=== PATIENT | female | born 1990 | race Hispanic/Latino ===

== ENCOUNTER 2019-06-30 19:15 | Inpatient (IN) | payer OTHER ==
[~2019-06-30 19:15] MED LIST: Bupivacaine 0.25% HCL 30 ML VIAL ONE
[2019-06-30] MEDS ORDERED: NS w/ Oxytocin 10 units 500 ML IV SCH (19:54)
[2019-06-30] MEDS ORDERED: Promethazine HCl 25 MG/ML VIAL IM PRN (19:54)
[2019-06-30] MEDS ORDERED: Ibuprofen 800 MG TAB PO PRN (19:54)
[2019-06-30] MEDS ORDERED: HYDROcodone/Acetaminophen 5/325 mg Tablet PO PRN ×2 (19:54)
[2019-06-30] MEDS ORDERED: Lidocaine 1% (PF) 30 ML VIAL SC PRN (19:54)
[2019-06-30] MEDS ORDERED: hydrALAZINE 20 MG/ML VIAL SLOW IVP PRN (19:54)
[2019-06-30 20:19] VITALS: BMI 33.0
[2019-06-30] MEDS: Lactated Ringer's 1,000 ML IV SCH (20:41)
[2019-06-30 21:05] LABS: Hemoglobin 12.9 g/dL (12.0-16.0); Mean Corpuscular HGB CONC 35.7 g/dL (32.0-36.0); Mean Corpuscular Hemoglobin 32.4 pg (27.0-31.0); Mean Corpuscular Volume 90.7 fL (78.0-98.0); Mean Platelet Volume 9.9 fL (7.4-10.4); Platelet Count 151 thou/uL (130-400); RBC Distribution Width 11.9 % (11.5-14.5); Red Blood Cell (RBC) Count 3.97 mill/uL (4.20-5.40); White Blood Cell (WBC) Count 10.3 thou/uL (4.8-10.8)
[2019-06-30] MEDS: Misoprostol 100 MCG TAB VAG SCH (21:12)
[2019-06-30 21:43] LABS: Syphilis Antibody Nonreactive (Nonreactive); Syphilis Antibody Index 0.03 S/CO (<1.00 Non-Reactive)
[2019-06-30 23:02] LABS: HBSAg Index 0.22 S/CO (0-0.99); Hep B Surf Ag Non-Reactive S/CO (NonReactive)
[2019-07-01] MEDS: Lactated Ringer's 1,000 ML IV SCH ×3 (01:54→16:46)
[2019-07-01] MEDS: Butorphanol Tartrate 1 MG/ML VIAL SLOW IVP PRN ×2 (08:06→09:56)
[2019-07-01] MEDS: Ondansetron PF 4 MG/2 ML Vial IVP PRN ×3 (08:06→20:53)
[2019-07-01] MEDS ORDERED: Fentanyl 4 mcg/Bup 0.1% Cadd 100 ML ONE (10:01)
--- NOTE | 2019-07-01 10:22 | PDOC.LDPN ---
Labor & Delivery Progress Note - Subjective Subjective: painful contractions - Objective Vital signs reviewed and normal: yes General: breathing through contractions Dilation: 4 Effacement: 90% Station: 0 FHT: category 1 [place] contractions every: 2 AROM: clear fluid - Assessment (1) 39 weeks gestation of Code(s): Z3A.39 - 39 WEEKS GESTATION OF Current Visit: Yes Status : Acute Plan: continue plan of care
[2019-07-01] MEDS ORDERED: ePHEDrine/0.9% NaCl/PF SYRINGE 50 mg/10 ml SLOW IVP PRN (12:50)
[2019-07-01] MEDS ORDERED: Naloxone HCl 0.4 mg/ml Vial IVP PRN ×2 (12:50)
[2019-07-01] MEDS ORDERED: diphenhydrAMINE 50 MG/ML VIAL IVP PRN (12:50)
[2019-07-01] MEDS ORDERED: Ondansetron PF 4 MG/2 ML Vial IVP PRN ×2 (12:50→23:14)
[2019-07-01] MEDS ORDERED: Acetaminophen 325 MG TAB PO PRN (12:50)
[2019-07-01] MEDS ORDERED: Promethazine HCl 25 MG/ML VIAL IM PRN ×2 (12:50→23:14)
[2019-07-01] MEDS ORDERED: Lactated Ringer's 500 ML IV PRN (12:50)
[2019-07-01] MEDS ORDERED: Communication Order-Pharmacy FS SCH (13:00)
[2019-07-01] MEDS ORDERED: Fentanyl 4 mcg/Bupivacaine 0.1% Cassette 100 ML EPIDURAL SCH (13:00)
[2019-07-01] MEDS: NS w/ Oxytocin 10 units 500 ML IV SCH (15:38)
[2019-07-01] MEDS: NS / Oxytocin 40 units/1000ml 1,000 ML IV PRN ×2 (20:00→22:42)
[2019-07-01] MEDS ORDERED: Methylergonovine 0.2 MG/ML VIAL ONE (20:04)
[2019-07-01] MEDS: Misoprostol 200 MCG TAB ONE ×2 (20:06→20:07)
[2019-07-01] MEDS ORDERED: Preparation H Ointment 28 GM TUBE PR PRN (23:14)
[2019-07-01] MEDS ORDERED: diphenhydrAMINE 25 MG CAP PO PRN (23:14)
[2019-07-01] MEDS ORDERED: Milk Of Magnesia 30 ML UDCUP PO PRN (23:14)
[2019-07-01] MEDS ORDERED: Lanolin Ointment 7 GM TUBE TOP PRN (23:14)
[2019-07-01] MEDS ORDERED: HYDROcodone/Acetaminophen 5/325 mg Tablet PO PRN ×2 (23:14)
[2019-07-01] MEDS ORDERED: Benzocaine-Menthol 82.5 ML CAN TOP PRN (23:14)
[2019-07-01] MEDS ORDERED: hydrALAZINE 20 MG/ML VIAL SLOW IVP PRN (23:14)
[2019-07-01] MEDS ORDERED: Bisacodyl 10 MG SUPP PR PRN (23:14)
[2019-07-01] MEDS ORDERED: NS / Oxytocin 40 units/1000ml 1,000 ML IV SCH (23:14)
[2019-07-02] MEDS: Ibuprofen 800 MG TAB PO SCH ×3 (00:32→21:36)
[2019-07-02] MEDS: Misoprostol 100 MCG TAB VAG SCH ×3 (00:35→00:41)
[2019-07-02] MEDS: NS w/ Oxytocin 10 units 500 ML IV SCH (00:36)
[2019-07-02] MEDS: Lactated Ringer's 1,000 ML IV SCH (00:36)
[2019-07-02 06:12] LABS: Hemoglobin 11.3 g/dL (12.0-16.0)
[2019-07-02] MEDS: Ferrous Sulfate 325 MG TAB PO SCH ×2 (07:46→15:59)
--- NOTE | 2019-07-02 08:11 | PDOC.PP ---
Post Progress Note Post Day #: 1 Subjective: doing well, pain controlled, normal lochia PO intake tolerated: yes Flatus: yes Ambulation: yes Vital Signs (12 hours) Temp Pulse Resp BP Pulse Ox 07/02/19 04:58 98.3 F 81 18 123/72 100 07/01/19 23:20 99.1 F 81 18 134/75 100 Weight Weight 181 lb - Physical Examination General: NAD Respiratory: non-labored breathing Abdominal: no distention Fundus firm & at: below umb Neurological: no gross focal deficits Psychiatric: A&Ox3, normal affect Result Diagrams: 07/02/19 05:56 Additional Labs: Post Labs Blood Type O POSITIVE 06/30/19 21:58 Hep Bs Antigen Non-Reactive S/CO (NonReactive) 06/30/19 20:43 (1) 39 weeks gestation of Code(s): Z3A.39 - 39 WEEKS GESTATION OF Status: Acute (2) Vaginal delivery Code(s): O80 - ENCOUNTER FOR FULL-TERM UNCOMPLICATED DELIVERY Status: Acute - Assessment/Plan PPD1 doing well, likely DC tomorrow.
[2019-07-02] MEDS ORDERED: Adacel (T-DAP) 0.5 ML SYRINGE IM ONE (09:00)
[2019-07-02] MEDS: Docusate Calcium (SURFAK) 240 MG CAP PO SCH ×2 (09:28→21:36)
[2019-07-02] MEDS: Prenatal Vitamin 1 TAB PO SCH (09:28)
--- NOTE | 2019-07-03 05:12 | PDOC.PP ---
Post Progress Note Post Day #: 2 Subjective: Doing well PO intake tolerated: yes Flatus: yes Ambulation: yes Vital Signs (12 hours) Temp Pulse Resp BP Pulse Ox 07/03/19 00:22 97.6 F 87 18 108/71 98 07/02/19 21:20 97.7 F 88 18 98/60 96 07/02/19 20:00 96 Weight Weight 181 lb Vitals reviewed over last 24 hrs - Physical Examination Respiratory: non-labored breathing Abdominal: lochia, no distention, appropriately TTP Extremities: negative homans (B) Neurological: no gross focal deficits Psychiatric: A&Ox3, normal affect Result Diagrams: 07/02/19 05:56 Additional Labs: Post Labs Blood Type O POSITIVE 06/30/19 21:58 Hep Bs Antigen Non-Reactive S/CO (NonReactive) 06/30/19 20:43 (1) 39 weeks gestation of Code(s): Z3A.39 - 39 WEEKS GESTATION OF Status: Acute (2) Vaginal delivery Code(s): O80 - ENCOUNTER FOR FULL-TERM UNCOMPLICATED DELIVERY Status: Acute - Assessment/Plan Plan: OK for DC to home today. Motrin prn.\ F/U routine
[2019-07-03] MEDS: Ibuprofen 800 MG TAB PO SCH (05:24)
[2019-07-03 08:23] VITALS: BP 103/59; TEMP 97.6
[2019-07-03] MEDS: Ferrous Sulfate 325 MG TAB PO SCH (10:10)
[2019-07-03] MEDS: Docusate Calcium (SURFAK) 240 MG CAP PO SCH (10:55)
[2019-07-03] MEDS: Prenatal Vitamin 1 TAB PO SCH (10:56)
== END 2019-07-03 12:27 | disposition home or self-care (01) | DRG 807 ==
LOC: L&D 19:51 → 3SE 07-02 00:30
PROVIDERS: ADMIT Obstetrics & Gynecology; ATTEND Obstetrics & Gynecology
PROC: 10E0XZZ Delivery of Products of Conception, External Approach (ICD-10-PCS; principal; 2019-07-01)
PROC: 0HQ9XZZ Repair Perineum Skin, External Approach (ICD-10-PCS; 2019-07-01)
PROC: 3E033VJ Introduction of Other Hormone into Peripheral Vein, Percutaneous Approach (ICD-10-PCS; 2019-07-01)
DX: O70.0 First degree perineal laceration during delivery (principal); Z37.0 Single live birth; Z3A.39 39 weeks gestation of pregnancy
CPT/HCPCS: 36415; 51702; 85014; 85018; 85027; 86780; 86850; 86900; 86901; 87340; J0595; J2210; J2405; J2590; S0020

== ENCOUNTER 2024-04-21 07:37 | Emergency (ER) | payer OTHER ==
[2024-04-21 08:40] LABS: Pregnancy Test - Urine (BHCG) POSITIVE (Negative); Pregu Control Background? CLEAR/WHITE (CLR/WHITE); Pregu Control Bar Appear? YES (CONTROL BAR)
[2024-04-21 08:41] LABS: ALT (SGPT) 19 U/L (8-55); AST (SGOT) 19 U/L (5-34); Alkaline Phosphatase 106 U/L (40-110); Anion Gap 15 mmol/L (10-20); BUN (Urea Nitrogen) 22 mg/dL (7.0-18.7); Bilirubin, Total 0.3 mg/dL (0.2-1.2); Calc. Creatinine Clearance 0 mL/min (70-130); Calcium 9.2 mg/dL (7.8-10.44); Carbon Dioxide 21 mmol/L (22-29); Chloride 107 mmol/L (98-107); Estimated GFR 93; Globulin 3.5 g/dL (2.4-3.5); Glucose 96 mg/dL (70-105); Lipase 29 U/L (8-78); Potassium 4.4 mmol/L (3.5-5.1); Protein, Total 7.5 g/dL (6.0-8.3); Sodium 139 mmol/L (136-145)
[2024-04-21 08:41] LABS: Bacteria/HPF None Seen HPF (None Seen); Bilirubin Negative (Negative); Blood, Urine Trace (Negative); CAUTI Indications for Culture Pelvic or flank pain; Clarity Clear (Clear); Glucose, Urine (Dipstick) Normal (Negative); Ketone, Urine Negative (Negative); Leukocyte Negative Leu/uL (Negative); Nitrite Negative (Negative); Protein, Urine (Dipstick) Negative (Neg-Trace); Specific Gravity, Urine 1.012 (1.002-1.036); Urobilinogen Normal mg/dL (Less than 2); WBC/HPF 0-3 HPF (0-3)
[2024-04-21] MEDS ORDERED: Ketorolac Tromethamine 30 MG (1 mL) VIAL ONE (08:41)
[2024-04-21] MEDS ORDERED: Morphine 4 MG/ML VIAL ONE (08:41)
[2024-04-21 08:42] LABS: Specific Gravity 1.012 (1.002-1.036)
[2024-04-21] MEDS ORDERED: Ondansetron PF 4 MG/2 ML Vial ONE ×3 (08:42→13:37)
[2024-04-21 08:43] LABS: Urine Culture Reflex No No
[2024-04-21 09:08] LABS: #Basophils Less than 0.03 10x3/uL (0.0-0.2); %Basophils 0.2 % (0.0-1.0); %Lymphocytes 15.6 % (21.0-51.0); %Monocytes 6.1 % (0.0-10.0); %Neutrophils 75.6 % (42.0-75.0); Hematocrit 39.7 % (36.0-47.0); Hemoglobin 12.3 g/dL (12.0-16.0); Mean Platelet Volume 9.7 fL (7.4-10.4); Platelet Count 191 10x3/uL (130-400); RBC Distribution Width 11.5 % (11.5-14.5); Red Blood Cell (RBC) Count 3.97 mill/uL (4.20-5.40)
[2024-04-21] MEDS ORDERED: HYDROmorphone 0.5 MG/0.5 ML SYRINGE ONE (11:43)
[2024-04-21] MEDS ORDERED: Lidocaine 2% PF 100 mg/5 ml Syringe ONE (12:50)
[2024-04-21] MEDS ORDERED: fentaNYL PF 100 MCG/2 ML SYRINGE ONE (12:50)
[2024-04-21] MEDS ORDERED: PROPOFOL 20 ML ONE (12:50)
[2024-04-21] MEDS ORDERED: SUCCINYLCHOLINE/SOD CL,ISO/PF 200 MG/10 ML SYRINGE FS ONE (13:17)
[2024-04-21] MEDS ORDERED: Dexamethasone 20 MG/5 ML VIAL ONE (13:37)
[2024-04-21] MEDS ORDERED: CEFAZOLIN 2 GM VIAL ONE (13:39)
[2024-04-21] MEDS ORDERED: Iopamidol 15 ML ONE (14:22)
== END 2024-04-21 13:08 | disposition admitted as inpatient to this hospital (09) ==
LOC: ERS 07:37
DX: N20.0 Calculus of kidney (principal)
CPT/HCPCS: 36415; 74176; 74420; 80053; 81001; 81025; 83605; 83690; 84702; 85025; 96374; 96375; 96376; C2617; J1100; J1170; J1885; J2003; J2272; J2405; J2704; Q9967

== ENCOUNTER 2024-05-10 07:33 | Day surgery (SDC) | payer OTHER ==
[2024-05-01 09:15] VITALS: BMI 28.0
[2024-05-10] MEDS ORDERED: Lidocaine 2% PF 5 ML VIAL ONE (10:39)
[2024-05-10] MEDS ORDERED: PROPOFOL 20 ML ONE (10:39)
[2024-05-10] MEDS ORDERED: Rocuronium Bromide 10 MG/ML (10ML VIAL) ONE (10:39)
[2024-05-10] MEDS ORDERED: Iopamidol 30 ML ONE (11:18)
[2024-05-10] MEDS ORDERED: Midazolam HCl 2 mg/2 ml Vial ONE (11:28)
[2024-05-10] MEDS ORDERED: fentaNYL PF 100 MCG/2 ML SYRINGE ONE (11:28)
[2024-05-10] MEDS ORDERED: CEFAZOLIN 2 GM VIAL ONE (11:32)
[2024-05-10] MEDS ORDERED: Ondansetron PF 4 MG/2 ML Vial ONE (11:52)
[2024-05-10] MEDS ORDERED: Dexamethasone 4 mg/ml Vial ONE (11:52)
[2024-05-10] MEDS ORDERED: SUGAMMADEX SODIUM 200 MG/2 ML VIAL ONE (11:52)
[2024-05-10] MEDS ORDERED: diphenhydrAMINE 50 MG/ML VIAL ONE (12:56)
[2024-05-10] MEDS ORDERED: fentaNYL 50 mcg/mL 1 mL Vial ONE (13:13)
[2024-05-10] MEDS ORDERED: HYDROcodone/Acetaminophen 5/325 mg Tablet ONE (14:17)
== END 2024-05-10 15:00 | disposition home or self-care (01) ==
LOC: SDC 07:33
PROVIDERS: ATTEND Urology
PROC: 0T778DZ Dilation of Left Ureter with Intraluminal Device, Via Natural or Artificial Opening Endoscopic (ICD-10-PCS; principal; 2024-05-10)
PROC: 0TC18ZZ Extirpation of Matter from Left Kidney, Via Natural or Artificial Opening Endoscopic (ICD-10-PCS; principal; 2024-05-10)
DX: N20.0 Calculus of kidney (principal); Z98.51 Tubal ligation status; Z90.49 Acquired absence of other specified parts of digestive tract
CPT/HCPCS: 74420; 82365; 88300; C1747; C1769; C2617; J1100; J1200; J2250; J2405; J2704; J3010; Q9967

== ENCOUNTER 2024-07-23 09:10 | Emergency (ER) | payer OTHER ==
[2024-07-23] MEDS ORDERED: Ketorolac Tromethamine 30 MG (1 mL) VIAL ONE (09:23)
[2024-07-23] MEDS ORDERED: Ondansetron PF 4 MG/2 ML Vial ONE (09:23)
[2024-07-23] MEDS ORDERED: Morphine 4 MG/ML VIAL ONE (09:23)
[2024-07-23 09:48] LABS: #Basophils Less than 0.03 10x3/uL (0.0-0.2); %Basophils 0.2 % (0.0-1.0); %Eosinophils 0.5 % (0.0-10.0); %Lymphocytes 13.8 % (21.0-51.0); %Monocytes 6.1 % (0.0-10.0); Hematocrit 39.6 % (36.0-47.0); Hemoglobin 13.3 g/dL (12.0-16.0); Mean Corpuscular HGB CONC 33.6 g/dL (32.0-36.0); Mean Corpuscular Hemoglobin 31.1 pg (27.0-31.0); Mean Corpuscular Volume 92.5 fL (78.0-98.0); Mean Platelet Volume 10.1 fL (7.4-10.4); Platelet Count 228 10x3/uL (130-400); RBC Distribution Width 11.4 % (11.5-14.5); Red Blood Cell (RBC) Count 4.28 mill/uL (4.20-5.40)
[2024-07-23 09:49] LABS: Bacteria/HPF None Seen HPF (None Seen); Bilirubin Negative (Negative); Blood, Urine 1+ (Negative); CAUTI Indications for Culture Pelvic or flank pain; Clarity Clear (Clear); Glucose, Urine (Dipstick) Normal (Negative); Ketone, Urine Negative (Negative); Leukocyte Negative Leu/uL (Negative); Nitrite Negative (Negative); Protein, Urine (Dipstick) Negative (Neg-Trace); Specific Gravity, Urine 1.015 (1.002-1.036); Squamous Epithelial None Seen HPF (0-3); Urobilinogen Normal mg/dL (Less than 2); WBC/HPF 0-3 HPF (0-3); pH, Urine 6.5 (5.0-9.0)
[2024-07-23 09:50] LABS: Urine Culture Reflex No No
[2024-07-23 09:51] LABS: Pregnancy Test - Urine (BHCG) Negative (Negative); Pregu Control Background? CLEAR/WHITE (CLR/WHITE); Pregu Control Bar Appear? YES (CONTROL BAR); Specific Gravity 1.015 (1.002-1.036)
[2024-07-23 10:06] LABS: ALT (SGPT) 20 U/L (8-55); AST (SGOT) 19 U/L (5-34); Albumin 4.4 g/dL (3.5-5.0); Alkaline Phosphatase 96 U/L (40-110); Anion Gap 13 mmol/L (10-20); BUN (Urea Nitrogen) 18 mg/dL (7.0-18.7); Bilirubin, Total 0.3 mg/dL (0.2-1.2); Calc. Creatinine Clearance 0 mL/min (70-130); Calcium 9.7 mg/dL (7.8-10.44); Carbon Dioxide 28 mmol/L (22-29); Chloride 104 mmol/L (98-107); Estimated GFR 88; Globulin 4.3 g/dL (2.4-3.5); Glucose 108 mg/dL (70-105); Potassium 3.6 mmol/L (3.5-5.1); Protein, Total 8.7 g/dL (6.0-8.3); Sodium 141 mmol/L (136-145)
== END 2024-07-23 11:15 | disposition home or self-care (01) ==
LOC: ERS 09:10
DX: N13.2 Hydronephrosis with renal and ureteral calculous obstruction (principal); Z55.6 Problems related to health literacy
CPT/HCPCS: 74176; 80053; 81001; 81025; 85025; 87086; 96361; 96374; 96375; J1885; J2270; J2405

== ENCOUNTER 2024-07-24 17:44 | Emergency (ER) | payer OTHER ==
[2024-07-24 18:37] LABS: #Basophils 0.03 10x3/uL (0.0-0.2); %Basophils 0.2 % (0.0-1.0); %Eosinophils 0.5 % (0.0-10.0); %Lymphocytes 8.5 % (21.0-51.0); %Monocytes 7.8 % (0.0-10.0); %Neutrophils 82.5 % (42.0-75.0); Hematocrit 40.8 % (36.0-47.0); Hemoglobin 13.8 g/dL (12.0-16.0); Mean Corpuscular HGB CONC 33.8 g/dL (32.0-36.0); Mean Corpuscular Hemoglobin 31.4 pg (27.0-31.0); Mean Corpuscular Volume 92.7 fL (78.0-98.0); Mean Platelet Volume 10.2 fL (7.4-10.4); Platelet Count 234 10x3/uL (130-400); RBC Distribution Width 11.3 % (11.5-14.5)
[2024-07-24 18:52] LABS: BHCG - Serum Negative (NEGATIVE); Pregs Control Background? CLEAR/WHITE (CLR/WHITE); Pregs Control Bar Appear? YES (CONTROL BAR)
[2024-07-24 18:54] LABS: ALT (SGPT) 14 U/L (Less than 34); AST (SGOT) 24 U/L (11-34); Albumin 4.1 g/dL (3.1-4.5); Alkaline Phosphatase 89 U/L (40-110); Anion Gap 14 mmol/L (10-20); BUN (Urea Nitrogen) 14 mg/dL (7.0-18.7); Bilirubin, Total 0.7 mg/dL (0.3-1.2); Calc. Creatinine Clearance 0 mL/min (70-130); Calcium 9.1 mg/dL (7.8-10.44); Carbon Dioxide 24 mmol/L (22-29); Chloride 103 mmol/L (98-107); Estimated GFR 61; Globulin 3.9 g/dL (2.4-3.5); Glucose 83 mg/dL (70-105); Potassium 4.1 mmol/L (3.5-5.1); Sodium 137 mmol/L (136-145)
[2024-07-24] MEDS ORDERED: Sodium Chloride 0.9% 100 ML ONE (19:22)
[2024-07-24] MEDS ORDERED: Ondansetron PF 4 MG/2 ML Vial ONE (19:22)
[2024-07-24] MEDS ORDERED: Morphine 4 MG/ML VIAL ONE (19:22)
[2024-07-24] MEDS ORDERED: cefTRIAXone (ROCEPHIN) 2 GM VIAL ONE (19:22)
[2024-07-24 20:33] LABS: Bilirubin Negative (Negative); Blood, Urine Negative (Negative); CAUTI Indications for Culture Alt mental st,lethar; Clarity Clear (Clear); Glucose, Urine (Dipstick) Normal (Negative); Ketone, Urine 40 mg/dL (Negative); Leukocyte Negative Leu/uL (Negative); Nitrite Negative (Negative); Protein, Urine (Dipstick) Negative (Neg-Trace); RBC/HPF None Seen HPF (0-3); Squamous Epithelial 0-3 HPF (0-3); Urobilinogen Normal mg/dL (Less than 2); WBC/HPF None Seen HPF (0-3); pH, Urine 6.5 (5.0-9.0)
[2024-07-24] MEDS ORDERED: Ketorolac Tromethamine 30 MG (1 mL) VIAL ONE (20:40)
[2024-07-24 20:47] LABS: Bacteria/HPF 1+ HPF (None Seen)
[2024-07-24 20:49] LABS: Urine Culture Reflex No No
== END 2024-07-24 21:45 | disposition home or self-care (01) ==
LOC: ERS 17:44
DX: N13.2 Hydronephrosis with renal and ureteral calculous obstruction (principal); M17.9 Osteoarthritis of knee, unspecified
CPT/HCPCS: 36415; 74176; 80053; 81001; 83605; 84145; 84703; 85025; 87040; 87086; 96365; 96366; 96375; J0696; J1885; J2270; J2405

== ENCOUNTER 2024-07-25 16:44 | Day surgery (SDC) | payer OTHER ==
[2024-07-25] MEDS ORDERED: CEFAZOLIN 2 GM VIAL ONE ×2 (17:01→17:07)
[2024-07-25] MEDS ORDERED: Iopamidol 30 ML ONE (17:02)
[2024-07-25] MEDS ORDERED: fentaNYL PF 100 MCG/2 ML SYRINGE ONE (17:07)
[2024-07-25] MEDS ORDERED: Sodium Chloride 0.9% 0 ML ONE (17:07)
[2024-07-25] MEDS ORDERED: Lidocaine 1% PF 5 ML VIAL ONE ×2 (17:07→17:31)
[2024-07-25] MEDS ORDERED: PROPOFOL 20 ML ONE (17:07)
[2024-07-25] MEDS ORDERED: Rocuronium Bromide 10 MG/ML (10ML VIAL) ONE (17:29)
[2024-07-25] MEDS ORDERED: Sterile Water 10 ML ONE (17:42)
[2024-07-25] MEDS ORDERED: Dexamethasone 20 MG/5 ML VIAL ONE (17:59)
[2024-07-25] MEDS ORDERED: Ondansetron PF 4 MG/2 ML Vial ONE (17:59)
[2024-07-25] MEDS ORDERED: SUGAMMADEX SODIUM 200 MG/2 ML VIAL ONE (18:46)
== END 2024-07-25 21:50 | disposition home or self-care (01) ==
LOC: SDC 16:44
PROVIDERS: ATTEND Urology
PROC: 0TB78ZX Excision of Left Ureter, Via Natural or Artificial Opening Endoscopic, Diagnostic (ICD-10-PCS; principal; 2024-07-25)
DX: N20.1 Calculus of ureter (principal); Z79.899 Other long term (current) drug therapy
CPT/HCPCS: 74420; C1747; C1769; C2617; J1100; J2405; J2704; Q9967

== ENCOUNTER 2024-07-26 23:08 | Observation (INO) | payer OTHER ==
[2024-07-26] MEDS ORDERED: Morphine 4 MG/ML VIAL ONE (23:42)
[2024-07-26] MEDS ORDERED: Ondansetron PF 4 MG/2 ML Vial ONE (23:42)
[2024-07-26] MEDS ORDERED: Ketorolac Tromethamine 30 MG (1 mL) VIAL ONE (23:42)
[2024-07-26 23:45] LABS: #Basophils Less than 0.03 10x3/uL (0.0-0.2); %Basophils 0.1 % (0.0-1.0); %Eosinophils 2.1 % (0.0-10.0); %Lymphocytes 16.8 % (21.0-51.0); %Monocytes 7.9 % (0.0-10.0); %Neutrophils 72.8 % (42.0-75.0); Hematocrit 38.2 % (36.0-47.0); Hemoglobin 12.6 g/dL (12.0-16.0); Mean Corpuscular Hemoglobin 30.9 pg (27.0-31.0); Mean Corpuscular Volume 93.6 fL (78.0-98.0); Mean Platelet Volume 9.8 fL (7.4-10.4); Platelet Count 236 10x3/uL (130-400); RBC Distribution Width 11.4 % (11.5-14.5); Red Blood Cell (RBC) Count 4.08 mill/uL (4.20-5.40)
[2024-07-27 00:01] LABS: ALT (SGPT) 11 U/L (Less than 34); AST (SGOT) 20 U/L (11-34); Alkaline Phosphatase 82 U/L (40-110); Anion Gap 13 mmol/L (10-20); BHCG - Serum Negative (NEGATIVE); BUN (Urea Nitrogen) 20 mg/dL (7.0-18.7); Bilirubin, Total 0.2 mg/dL (0.3-1.2); Calc. Creatinine Clearance 0 mL/min (70-130); Calcium 9.2 mg/dL (7.8-10.44); Carbon Dioxide 26 mmol/L (22-29); Chloride 105 mmol/L (98-107); Estimated GFR 40; Glucose 109 mg/dL (70-105); Potassium 3.6 mmol/L (3.5-5.1); Pregs Control Background? CLEAR/WHITE (CLR/WHITE); Pregs Control Bar Appear? YES (CONTROL BAR); Protein, Total 7.7 g/dL (6.0-8.3); Sodium 140 mmol/L (136-145)
[2024-07-27 00:09] LABS: Albumin 3.7 g/dL (3.1-4.5)
[2024-07-27] MEDS ORDERED: Sodium Chloride 0.9% 100 ML ONE (00:39)
[2024-07-27] MEDS ORDERED: cefTRIAXone (ROCEPHIN) 1 GM VIAL ONE (00:39)
[2024-07-27 01:54] VITALS: BMI 27.1
[2024-07-27] MEDS ORDERED: Ketorolac Tromethamine 30 MG (1 mL) VIAL IVP PRN (03:11)
[2024-07-27] MEDS ORDERED: Ondansetron PF 4 MG/2 ML Vial IVP PRN (03:15)
[2024-07-27] MEDS ORDERED: Ondansetron ODT 4 MG TAB SL PRN (03:15)
[2024-07-27] MEDS: Sodium Chloride 0.9% 1,000 ML IV SCH (03:22)
[2024-07-27] MEDS: Morphine 4 MG/ML VIAL SLOW IVP PRN (07:48)
[2024-07-27] MEDS ORDERED: traMADol HCl 50 MG TAB PO PRN (10:13)
[2024-07-27] MEDS ORDERED: Oxybutynin 5 MG TAB PO PRN (10:13)
[2024-07-27] MEDS ORDERED: Phenazopyridine HCl 100 MG TAB PO PRN (10:13)
[2024-07-27] MEDS ORDERED: fentaNYL PF 100 MCG/2 ML SYRINGE ONE (11:09)
[2024-07-27] MEDS ORDERED: PROPOFOL 20 ML ONE (11:10)
[2024-07-27] MEDS ORDERED: Midazolam HCl 2 mg/2 ml Vial ONE (11:11)
[2024-07-27] MEDS ORDERED: Ondansetron PF 4 MG/2 ML Vial ONE (11:25)
[2024-07-27] MEDS ORDERED: Lidocaine 1% PF 5 ML VIAL ONE (11:25)
[2024-07-27] MEDS ORDERED: PHENYLEPHRINE-NS 100 MCG/ML 10 ML SYRINGE ONE (11:37)
[2024-07-27] MEDS ORDERED: Dexamethasone 4 mg/ml Vial ONE (11:38)
[2024-07-27] MEDS ORDERED: Meperidine HCl/PF 25 MG (1 mL) VIAL ONE (12:24)
[2024-07-27 15:15] VITALS: BP 124/87; TEMP 97.9
== END 2024-07-27 15:16 | disposition home or self-care (01) ==
LOC: ERS 23:08 → ERHOLD 07-27 00:21 → SURG A 07-27 03:03
PROVIDERS: ADMIT Urology; ATTEND Urology
PROC: 0T778DZ Dilation of Left Ureter with Intraluminal Device, Via Natural or Artificial Opening Endoscopic (ICD-10-PCS; principal; 2024-07-27)
DX: N23 Unspecified renal colic (principal); N17.9 Acute kidney failure, unspecified; Z79.899 Other long term (current) drug therapy; Z98.890 Other specified postprocedural states
CPT/HCPCS: 36415; 74018; 80053; 84703; 85025; 96376; C2617; G0378; J0696; J1100; J1885; J2175; J2250; J2270; J2405; J2704; J7030